=== PATIENT | male | born 1985 | race Caucasian/White ===

== ENCOUNTER 2017-01-21 06:04 | Day surgery (SDC) | payer OTHER ==
[~2017-01-21 06:04] MED LIST: CEFAZOLIN SODIUM 2 GRAM PREMIX 100 ML IV ONE; CEFAZOLIN SODIUM 2 GRAM PREMIX 100 ML IV PRN; IV START KIT ONE; LACTATED RINGERS 1,000 ML ONE
[2017-01-21] MEDS ORDERED: PROPOFOL 0 ML IV ONE (06:40)
[2017-01-21] MEDS ORDERED: LIDOCAINE 2% (PRES FREE) 5 ML VIAL ONE (06:40)
[2017-01-21] MEDS ORDERED: PROPOFOL 20 ML IV ONE (06:40)
[2017-01-21] MEDS ORDERED: FENTANYL 100 MCG/2 ML VIAL ONE ×3 (06:40→08:35)
[2017-01-21] MEDS ORDERED: ROCURONIUM BROMIDE 10 MG/ML DOSE IV ONE ×8 (06:40→07:35)
[2017-01-21] MEDS ORDERED: MIDAZOLAM HCL 1 MG/ML 2ML VIAL ONE (06:44)
[2017-01-21] MEDS ORDERED: BUPIVACAINE 0.5% W/EPI SDV 30 ML VIAL ONE (06:48)
[2017-01-21] MEDS ORDERED: SODIUM CHLORIDE 0.9% FLUSH 10 ML ONE (06:48)
[2017-01-21] MEDS ORDERED: CEFAZOLIN SODIUM 1,000 MG VIAL ONE (06:48)
[2017-01-21] MEDS ORDERED: LIDOCAINE 1%/EPI 1:100,000 (MULTI DOSE) 30 ML VIAL ONE (06:49)
[2017-01-21] MEDS ORDERED: FAMOTIDINE 10 MG/ML 2ML VIAL ONE (07:06)
[2017-01-21] MEDS ORDERED: DEXAMETHASONE SOD PHOS 4 MG/1 ML VIAL ONE ×2 (07:36)
[2017-01-21] MEDS ORDERED: HYDROMORPHONE HCL 1 MG/ML SYRINGE IV PRN (07:37)
[2017-01-21] MEDS ORDERED: NALOXONE HCL 0.4 MG/ML VIAL IV PRN (07:37)
[2017-01-21] MEDS ORDERED: PROMETHAZINE HCL 25 MG/ML VIAL IM PRN (07:37)
[2017-01-21] MEDS ORDERED: LABETALOL HCL 5 MG/ML 20ML VIAL IV PRN (07:37)
[2017-01-21] MEDS ORDERED: ONDANSETRON 4 MG/2ML 2 ML VIAL IV PRN ×2 (07:37→08:52)
[2017-01-21] MEDS ORDERED: ATROPINE SULFATE 0.4 MG/1 ML VIAL IV PRN (07:37)
[2017-01-21] MEDS ORDERED: MEPERIDINE 25 MG/ML SYRINGE IV PRN (07:37)
[2017-01-21] MEDS ORDERED: HYDRALAZINE HCL 20 MG/1 ML VIAL IV PRN (07:37)
[2017-01-21] MEDS ORDERED: NEOSTIGMINE METHYLSULFATE 1 MG/ML DOSE ONE (07:45)
[2017-01-21] MEDS ORDERED: LACTATED RINGERS 1,000 ML IV SCH (07:45)
[2017-01-21] MEDS ORDERED: GLYCOPYRROLATE 0.2 MG/ML 1ML VIAL ONE ×3 (07:45→07:59)
[2017-01-21] MEDS ORDERED: MEPERIDINE 25 MG/ML SYRINGE ONE (08:15)
[2017-01-21] MEDS ORDERED: BUPIVACAINE 0.5% (PRES FREE) 30 ML VIAL ONE (08:27)
[2017-01-21] MEDS: FENTANYL 100 MCG/2 ML VIAL IV PRN ×2 (08:39→08:44)
[2017-01-21] MEDS ORDERED: LACTATED RINGERS 1,000 ML ONE (08:43)
[2017-01-21] MEDS ORDERED: MORPHINE SULFATE 2 MG/ML SYRINGE IV PRN (08:52)
[2017-01-21] MEDS ORDERED: OXYCODONE HCL 5 MG TABLET PO PRN (08:52)
[2017-01-21] MEDS ORDERED: KETOROLAC TROMETHAMINE 30 MG/ML 1 ML VIAL IV PRN (08:52)
[2017-01-21] MEDS ORDERED: KETOROLAC TROMETHAMINE 30 MG/ML 1 ML VIAL ONE (09:28)
[2017-01-21] MEDS ORDERED: MORPHINE SULFATE 4 MG/ML SYRINGE IV PRN (09:28)
[2017-01-21] MEDS ORDERED: MORPHINE SULFATE 10 MG/ML SYRINGE IV PRN (09:29)
[2017-01-21] MEDS ORDERED: MORPHINE SULFATE 2 MG/ML SYRINGE ONE (10:04)
--- NOTE | 2017-01-21 17:08 | OP ---
ELEAZAR ORDONEZ [id number] DATE OF OPERATION: January 21, 2017 PREOPERATIVE DIAGNOSIS: Incarcerated umbilical hernia. POSTOPERATIVE DIAGNOSIS: Incarcerated umbilical hernia. PROCEDURE: INCARCERATED UMBILICAL HERNIA REPAIR WITH SMALL VENTRALEX MESH PATCH. SURGEON: Benito Gomez M.D. REHAB TRAINER: Issac Xiong ANESTHESIA: Taras MurphyNGeneva, general anesthesia. INDICATIONS: This is a 31-year-old male who has tenderness at the umbilicus. He has a nonreducible mass below the skin consistent with an incarcerated hernia. He presents for elective repair. DESCRIPTION: With informed consent he was taken to the operating room where he was laid supine on the operating room table. General anesthesia was administered. The abdomen was prepped and draped in the usual sterile fashion. Local anesthetic was administered around the umbilicus. A curvilinear incision was made below the umbilicus. We dissected down through the subcutaneous fat. I dissected a hernia sac free at the level of the fascia. I carefully dissected the sac free from the base of the umbilicus using Metzenbaum scissors. We made sure there was no buttonhole defects in the skin. The fat within the hernia sac was preperitoneal fat. This was excised at the level of the fascia. The fascial defect was actually fairly small. I did enlarge it a little bit just to digitally inspect the intraabdominal component. I suspect most of the problem was preperitoneal fat only. I chose a small Ventralex mesh patch. This was placed so that it actually laid in the preperitoneal space. It was secured circumferentially with #0 Vicryl. The tails were cut away. The wound was irrigated. We appeared to have adequate hemostasis. The umbilical skin was sutured down near the fascia with some #3-0 Vicryl. Subcutaneous tissues were brought together with #3-0 Vicryl. Skin was closed with a running subcuticular #4-0 Monocryl. Mastisol and SteriStrips were placed. Sterile dressings were applied. He tolerated the procedure well and was taken to the recovery room in stable condition. A note was made that needle, instrument and lap counts were reported as correct at the time of closure. Cc: Samuel Ho M.D.
== END 2017-01-21 10:45 | disposition home or self-care (01) ==
LOC: EEVIPCON 06:04 → SDC 06:04
PROVIDERS: ATTEND Surgery
PROC: 0WUF0JZ Supplement Abdominal Wall with Synthetic Substitute, Open Approach (ICD-10-PCS; principal; 2017-01-21)
DX: K42.0 Umbilical hernia with obstruction, without gangrene (principal); F90.9 Attention-deficit hyperactivity disorder, unspecified type; E78.5 Hyperlipidemia, unspecified; K58.9 Irritable bowel syndrome, unspecified; E66.9 Obesity, unspecified; G47.33 Obstructive sleep apnea (adult) (pediatric); Z68.35 Body mass index [BMI] 35.0-35.9, adult
CPT/HCPCS: 49587; J0690 ×2; J2175; J3010 ×3; J1100 ×2; J2270; A9270; J1885; J2250; J7120 ×2